=== PATIENT | male | born 1970 | race American Indian/Alaskan Native ===

== ENCOUNTER 2018-06-19 02:17 | Emergency (ER) | payer SELFPAY ==
[2018-06-19 02:52] VITALS: BP 119/81
[2018-06-19] MEDS ORDERED: ZOFRAN IV ONE (02:53)
[2018-06-19] MEDS ORDERED: NACL 0.9% 1000 ML 1,000 ML IV ONE ×2 (02:53→03:39)
[2018-06-19 04:09] LABS: Basophils # (Auto) 0.1 K/mm3 (0.0-0.1); Basophils % (Auto) 1.1 % (0.0-1.8); Eosinophils # (Auto) 0.1 K/mm3 (0.0-0.4); Eosinophils % (Auto) 1.7 % (0.0-4.3); Hematocrit 46.1 % (35.5-45.6); Hemoglobin 15.7 gm/dl (11.8-15.2); Lymphocytes # (Auto) 2.3 K/mm3 (1.2-5.4); Lymphocytes % (Auto) 28.1 % (13.4-35.0); Mean Corpuscular HGB Conc 34 % (32-34); Mean Corpuscular Hemoglobin 30 pg (28-32); Mean Corpuscular Volume 89 fl (84-94); Monocytes # (Auto) 1.3 K/mm3 (0.0-0.8); Monocytes % (Auto) 15.2 % (0.0-7.3); Platelet Count 324 K/mm3 (140-440); Red Blood Count 5.21 M/mm3 (3.65-5.03); Red Cell Distribution Width 13.9 % (13.2-15.2)
[2018-06-19 04:12] LABS: Bilirubin,Urine NEG (Negative); Blood,Urine NEG (Negative); Color,Urine Yellow (Yellow); Mucus,Urine FEW /HPF
[2018-06-19 04:20] LABS: Calcium 9.6 mg/dL (8.4-10.2)
[2018-06-19] MEDS ORDERED: ROCEPHIN IM ONE (05:32)
[2018-06-19] MEDS ORDERED: ZITHROMAX PO ONE (05:32)
[2018-06-19] MEDS ORDERED: XYLOCAINE 1% MPF 5 mL INFILTRATI ONE (05:32)
--- NOTE | 2018-06-19 05:32 | Emergency Department Report ---
ED General Adult HPI - General Chief complaint: Nausea/Vomiting/Diarrhea Stated complaint: ABD PAIN; N/V/D Time Seen by Provider: 06/19/18 05:11 Source: patient Mode of arrival: Ambulatory Limitations: No Limitations - History of Present Illness Initial comments: 47-year-old -[place] male presents to the emergency room for complaint of abdominal pain nausea, vomiting and diarrhea. Patient reports this started on Sunday after consuming food from a girlfriend. Patient admits to having penile discharge that started today. Patient has no past medical history currently takes no medications on a daily basis denies any testicular swelling or tenderness. -: days(s) (4) Location: abdomen Severity scale (0 -10): 10 Consistency: intermittent Associated Symptoms: nausea/vomiting, other (diarrhea) Treatments Prior to Arrival: none - Related Data Previous Rx's Medication Instructions Recorded Last Taken Type Nitrofurantoin Monohyd/M-Cryst 100 mg PO BID #14 capsule 06/19/18 Unknown Rx [Macrobid 100 mg Capsule] Allergies Allergy/AdvReac Type Severity Reaction Status Date / Time No Known Allergies Allergy Unverified 06/19/18 02:52 ED Review of Systems ROS: Stated complaint: ABD PAIN; N/V/D Other details as noted in HPI Gastrointestinal: abdominal pain, nausea, vomiting, diarrhea Genitourinary: discharge Musculoskeletal: denies: back pain, joint swelling, arthralgia Skin: denies: rash, lesions Neurological: denies: headache, weakness, paresthesias ED Past Medical Hx - Past Medical History Previous Medical History?: No - Surgical History Past Surgical History?: No - Social History Smoking Status: Current Some Day Smoker Substance Use Type: None - Medications Home Medications: Home Medications Medication Instructions Recorded Confirmed Last Taken Type Nitrofurantoin Monohyd/M-Cryst 100 mg PO BID #14 capsule 06/19/18 Unknown Rx [Macrobid 100 mg Capsule] ED Physical Exam - General Limitations: No Limitations General appearance: alert, in no apparent distress - Head Head exam: Present: atraumatic, normocephalic - Eye Eye exam: Present: normal appearance - ENT ENT exam: Present: mucous membranes moist - Neck Neck exam: Present: normal inspection - Respiratory Respiratory exam: Present: normal lung sounds bilaterally. Absent: respiratory distress - Cardiovascular Cardiovascular Exam: Present: regular rate, normal rhythm. Absent: systolic murmur, diastolic murmur, rubs, gallop - GI/Abdominal GI/Abdominal exam: Present: soft, normal bowel sounds - Rectal Rectal exam: Present: deferred - Extremities Exam Extremities exam: Present: normal inspection - Back Exam Back exam: Present: normal inspection - Neurological Exam Neurological exam: Present: alert, oriented X3 - Psychiatric Psychiatric exam: Present: normal affect, normal mood - Skin Skin exam: Present: warm, dry, intact, normal color. Absent: rash ED Course Vital Signs 06/19/18 02:43 Temperature 99 F Pulse Rate 100 H Respiratory 18 Rate Blood Pressure 119/81 O2 Sat by Pulse 99 Oximetry ED Medical Decision Making - Lab Data Result diagrams: 06/19/18 Unknown 06/19/18 Unknown - Medical Decision Making Patient has been evaluated by this provider in fast track. Patient was started and IV he's had 2 L of normal saline he's had Zofran. CBC CMP urinalysis and will sit on a gonorrhea chlamydia. Urine. Patient reports that he feels much better after having fluids and antinausea medication. Constipation that I will treat him for urinary tract infection as he has elevated WBCs moderate amount of leukoesterase in protein. Also discussed the patient are treat him for STD Rocephin 250 mg IM and azithromycin 1 g and placed him on Macrobid 100 mg twice a day for 7 days. Critical care attestation.: If time is entered above; I have spent that time in minutes in the direct care of this critically ill patient, excluding procedure time. ED Disposition Clinical Impression: Nausea vomiting and diarrhea, Abnormal penile discharge, without blood, STD ( male), Urinary tract infection in male Disposition: - TO HOME OR SELFCARE Is pt being admited?: No Does the pt Need Aspirin: No Condition: Stable Instructions: Acute Nausea and Vomiting (ED), Abdominal Pain (ED), Sexually Transmitted Diseases (ED), Safe Sex (ED), Urinary Tract Infection in Men (ED) Additional Instructions: Please complete antibiotics as prescribed. Please have your sexual partner checked and treated. Please refrain from intercourse for the next 2 weeks. Please increase her fluid intake by 2 L a day. Advance her diet as tolerated. Prescriptions: Nitrofurantoin Monohyd/M-Cryst [Macrobid 100 mg Capsule] 100 mg PO BID #14 capsule Referrals: PRIMARY CARE, [Primary Care Provider] - 3-5 Days Forms: Work/School Release Form(ED)
== END 2018-06-19 06:35 | disposition home or self-care (01) ==
LOC: ED 02:17
DX: N39.0 Urinary tract infection, site not specified (principal); A64 Unspecified sexually transmitted disease; F17.200 Nicotine dependence, unspecified, uncomplicated
CPT/HCPCS: 36415; 80048; 81001; 83690; 85025; 96361; 96372; 96374; 99283; J0696; J2405; J7030

== ENCOUNTER 2022-05-29 16:38 | Emergency (ER) | payer SELFPAY ==
[2022-05-29 17:37] VITALS: BP 146/99
[2022-05-29] MEDS ORDERED: ASPIRIN 325 MG TAB PO ONE (17:38)
--- NOTE | 2022-05-29 18:11 | XRay Report ---
CHEST 2 VIEWS INDICATION / CLINICAL INFORMATION: chest pain. COMPARISON: None available. FINDINGS: SUPPORT DEVICES: None. HEART / MEDIASTINUM: No significant abnormality. LUNGS / PLEURA: No significant pulmonary or pleural abnormality. No pneumothorax. ADDITIONAL FINDINGS: No significant additional findings. IMPRESSION: 1. No acute findings. Signer Name: Brian Walker MD Signed: 05/29/2022 6:06 PM Workstation Name: [id number]
[2022-05-29 18:47] LABS: Hematocrit 46.2 % (35.5-45.6); Hemoglobin 15.4 gm/dl (11.8-15.2); Mean Corpuscular HGB Conc 33 % (32-34); Mean Corpuscular Volume 91 fl (84-94); Platelet Count 327 K/mm3 (140-440); Red Cell Distribution Width 14.4 % (13.2-15.2)
[2022-05-29 19:07] LABS: Alanine Aminotransferase 11 units/L (7-56); Albumin 4.1 g/dL (3.9-5); BUN/Creatinine Ratio 11; Blood Urea Nitrogen 11 mg/dL (9-20); Calcium 9.5 mg/dL (8.4-10.2); Hemolysis Index 6
[2022-05-29 21:12] LABS: Platelet Estimate Consistent w Auto; Total Cells Counted 100
--- NOTE | 2022-05-30 08:39 | Electrocardiograph Report ---
[facility] Test Date: 2022-05-29 Test Time: 17:39:26 Pat Name: MARCELLA MEDRANO Department: Room: Gender: M [employer] Machine Operator: SHAZIA : 1970 Requested By: DOMENICA CLARK Order Number: [id number] Reading MD: Nathaniel Murphy Measurements Intervals [place] Rate: 85 P: 37 OK: 159 QRS: -6 QRSD: 81 T: 73 QT: 377 QTc: 449 Interpretive Statements Sinus rhythm No previous ECG available for comparison Electronically Signed On 05-30-2022 8:39:39 EDT by Nathaniel Murphy
== END 2022-05-30 10:38 | disposition left against medical advice (07) ==
LOC: ED 16:38
DX: R07.9 Chest pain, unspecified (principal); Z53.21 Procedure and treatment not carried out due to patient leaving prior to being seen by health care provider
CPT/HCPCS: 36415; 71046; 80053; 84484; 85007; 85025; 93005